=== PATIENT | female | born 1960 ===

== ENCOUNTER 2021-12-25 08:44 | Day surgery (SDC) | payer OTHER ==
[~2021-12-25 08:44] MED LIST: MULTI VITAMIN1 EACH PO
[2021-12-25] MEDS ORDERED: PERCOCET 5-3251 EACH PO (14:00)
[2021-12-25] MEDS ORDERED: NEURONTIN300 MG PO (14:00)
[2021-12-25] MEDS ORDERED: DERMOPLAST PAIN78 GM TOP (14:00)
== END 2021-12-25 16:45 | disposition home or self-care (01) ==
LOC: CIR.AMB 08:44
PROVIDERS: ATTEND Surgery
DX: K64.3 Fourth degree hemorrhoids (principal); K60.1 Chronic anal fissure; K59.09 Other constipation; J45.909 Unspecified asthma, uncomplicated